=== PATIENT | female | born 1990 | race African-American/Black ===

== ENCOUNTER 2019-12-16 18:49 | Emergency (ER) | payer SELFPAY ==
[~2019-12-16] VITALS: Ht 165.1 cm; Wt 87.0 kg
[2019-12-16 18:55] VITALS: BP 134/73
== END 2019-12-16 19:19 | disposition left against medical advice (07) ==
LOC: ER 18:49
DX: R10.30 Lower abdominal pain, unspecified (principal); Z53.21 Procedure and treatment not carried out due to patient leaving prior to being seen by health care provider
CPT/HCPCS: 93005